=== PATIENT | male | born 1980 | race Caucasian/White ===

== ENCOUNTER → 2021-01-16 12:47 | Outpatient (CLI) | payer MEDICAID, SELFPAY ==
[2021-01-16 13:29] LABS: Basophils # 0.1 K/mm3 (0-0.2); Basophils % 0.6 % (0.1-2.0); Eosinophils # 0.2 K/mm3 (0.0-0.4); Eosinophils % 1.2 % (0.1-12.0); Hemoglobin 16.6 g/dL (14.1-18.0); Mean Corpuscular HGB Conc 33.8 g/dL (31.8-35.4); Mean Corpuscular Hemoglobin 29.2 pg (27.0-31.2); Mean Corpuscular Volume 86.3 fl (80-94); Mean Platelet Volume 8.1 fl (7.4-10.4); Monocytes # 0.8 K/mm3 (0.1-1.0); Monocytes % 5.8 % (1.7-9.3); Neutrophils # 8.3 K/mm3 (1.8-7.8); Neutrophils % 62.4 % (37.0-80.0); Platelet Count 203 K/mm3 (142-424); Red Blood Count 5.68 M/mm3 (4.60-6.20); Red Cell Distribution Width 13.3 % (11.5-17.5); White Blood Count 13.4 K/mm3 (4.8-10.8)
[2021-01-16 14:23] LABS: Hemoglobin A1C 5.7 % (4.0-6.0)
[2021-01-16 15:01] LABS: Alanine Aminotransferase 129 U/L (12-78); Albumin Level 4.5 g/dl (3.5-5.0); Albumin/Globulin Ratio 1.4 (1.1-1.8); Alkaline Phosphatase 95 U/L (38-126); Anion Gap 13.6 mEq/L (5-15); Aspartate Amino Transferase 169 U/L (17-59); Bilirubin,Total 0.5 mg/dl (0.2-1.3); Blood Urea Nitrogen 15 mg/dl (9-20); Calcium 9.5 mg/dl (8.4-10.2); Carbon Dioxide 25 mmol/L (22.0-30.0); Chloride 103 mmol/L (98-107); Chol/HDL Ratio 5.8 (1-3.5); Cholesterol 202 mg/dl (140-200); Estimated Glomerular Filt Rate 124 ml/min (>60); GFR (African American) 150 ML/MIN (>60); Globulin 3.3 g/dL (1.3-3.2); Glucose 94 mg/dl (74-100); HDL Cholesterol 35 mg/dl (40-60); Potassium 4.6 mmoL/L (3.5-5.1); Sodium 137 mmol/L (136-145); Total Protein,Serum 7.8 g/dl (6.3-8.2); Triglycerides 188 mg/dl (30-150); VLDL Cholesterol 38 mg/dL (0-40)
[2021-01-16 15:12] LABS: Direct LDL Cholesterol 133.08 mg/dL (100-129)
[2021-01-16 15:52] LABS: Vitamin B12 958 pg/mL (239-931)
[2021-01-18 08:14] LABS: HIV Screen 4th Generation wRfx Non Reactive (Non Reactive)
[2021-01-18 12:31] LABS: Hep A Ab, IgM Negative (Negative); Hepatitis B Surf Ab Quant <3.1 mIU/mL (Immunity>9.9)
[2021-01-18 17:10] LABS: Treponema pallidum Ab (FTA-ABS Non Reactive (Non Reactive)
== END ==
PROVIDERS: Visit Provider Internal Medicine Adolescent Medicine
DX: B18.2 Chronic viral hepatitis C (principal); I10 Essential (primary) hypertension; M54.16 Radiculopathy, lumbar region; Z83.3 Family history of diabetes mellitus
CPT/HCPCS: 36415; 80053; 80061; 82607; 83036; 85025; 86703; 86706; 86708; 86780; 87522; G0432

== ENCOUNTER → 2021-02-15 07:39 | Outpatient (CLI) | payer MEDICAID, SELFPAY ==
--- NOTE | 2021-02-15 07:44 | US_ITS ---
PROCEDURE: US LIVER CLINICAL INDICATION: CHRONIC HEP C W/O HEPATIC COMA COMPARISON: No exams were available for comparison FINDINGS: PANCREAS: Unremarkable. No obvious mass or abnormal fluid collection. No ductal dilatation LIVER: Diffuse increased echogenicity of the liver with poor through transmission of sound consistent with hepatic steatosis. No focal liver lesion demonstrated. There is appropriate direction of blood flow within non dilated portal vein. Liver parenchyma is somewhat poorly delineated due to fatty liver. RIGHT KIDNEY: Unremarkable. Normal size and echogenicity. No hydronephrosis GALLBLADDER: No gallstones, gallbladder wall thickening, pericholecystic fluid, or biliary dilatation. IMPRESSION: Fatty liver otherwise negative Dictated by: Antony Gomes MD 02/15/2021 15:43 Antony Gomes MD in [place] 02/15/2021 15:43
--- NOTE | 2021-02-15 08:30 | MR_ITS ---
PROCEDURE: MR LUMBAR SPINE WO CON CLINICAL INDICATION: LBP Back pain and left hip pain COMPARISON: No exams were available for comparison TECHNIQUE: Standard multiplanar multiecho sequences are performed without contrast. 3-D MIP and myelographic images are also rendered and reviewed FINDINGS: There is normal alignment. The spinal cord ends at the L1 level. L1-L2: Minimal endplate irregularity. Mild facet ligamentum hypertrophy. L2-L3: Mild facet ligamentum hypertrophy L3-L4: Facet and ligamentum hypertrophy with mild bilateral foraminal narrowing L4-5: Facet and ligamentum hypertrophy with mild bilateral foraminal narrowing. L5-S1: Facet and ligamentum hypertrophic change with mild right and moderate left-sided foraminal narrowing. No fracture or dislocation. No bony destructive process. IMPRESSION: 1. Multilevel facet and ligamentum hypertrophic changes with foraminal narrowing as detailed above. 2. No herniated disc or bony canal stenosis. Dictated by: Antony Gomes MD 02/16/2021 09:25 Antony Gomes MD in [place] 02/16/2021 09:25
== END ==
PROVIDERS: PCP Internal Medicine Adolescent Medicine; Visit Provider Internal Medicine Adolescent Medicine
DX: B18.2 Chronic viral hepatitis C (principal); G62.9 Polyneuropathy, unspecified
CPT/HCPCS: 72148; 76376; 76705

== ENCOUNTER → 2021-11-16 11:11 | Outpatient (CLI) | payer MEDICAID, SELFPAY ==
[2021-11-16 13:30] LABS: 25-OH Vitamin D, Total 77.4 ng/mL (30-100)
[2021-11-16 13:42] LABS: Thyroid Stimulating Hormone 1.52 uIU/mL (0.465-4.68)
[2021-11-16 14:01] LABS: Vitamin B12 807 pg/mL (239-931)
[2021-11-17 09:46] LABS: Hepatitis B Surface Antigen Negative (Negative)
== END ==
PROVIDERS: PCP Registered Nurse; Visit Provider Registered Nurse
DX: I10 Essential (primary) hypertension (principal); B18.2 Chronic viral hepatitis C; R73.9 Hyperglycemia, unspecified; F11.20 Opioid dependence, uncomplicated; E66.01 Morbid (severe) obesity due to excess calories
CPT/HCPCS: 36415; 82306; 82607; 83036; 84443; 87340

== ENCOUNTER → 2021-11-23 10:56 | Outpatient (CLI) | payer MEDICAID, SELFPAY | PROVIDERS: PCP Internal Medicine Adolescent Medicine; Visit Provider Registered Nurse | DX: G47.30 Sleep apnea, unspecified (principal); R53.83 Other fatigue; R06.83 Snoring; G47.10 Hypersomnia, unspecified | CPT/HCPCS: 95806 ==

== ENCOUNTER 2023-06-17 08:28 | Outpatient (CLI) | payer MEDICAID, SELFPAY ==
--- NOTE | 2023-06-17 08:35 | US_ITS ---
FINAL REPORT TECHNIQUE: Sonographic images of the right upper quadrant were obtained. CLINICAL HISTORY: CHRONIC HEPATITIS C COMPARISON: 02/15/2021 FINDINGS: PANCREAS: Obscured. LIVER: Fatty infiltrated and appears enlarged.. No focal hepatic lesion. No intrahepatic biliary ductal dilatation. The portal vein is patent. GALLBLADDER: No gallstones. No gallbladder wall thickening or pericholecystic fluid. COMMON DUCT: 4 mm. Normal for age. RIGHT KIDNEY: The right kidney measures 10.8 cm. There is no hydronephrosis, mass, or stone. FREE FLUID: None. IMPRESSION: Enlarged fatty liver. Reviewed, Interpreted and Dictated by Verena Carlin MD Transcribed by Beth Mckeon Authenticated and [facility]
== END 2023-06-17 23:59 ==
LOC: RAD 08:29
PROVIDERS: PCP Nurse Practitioner; Visit Provider Nurse Practitioner
DX: B18.2 Chronic viral hepatitis C (principal)
CPT/HCPCS: 76705